=== PATIENT | male | born 1985 | race Caucasian/White ===

== ENCOUNTER 2017-06-23 15:27 | Emergency (ER) | payer BC ==
[~2017-06-23] VITALS: Ht 180.3 cm; Wt 75.0 kg
[2017-06-23 15:33] VITALS: TEMP 36.5; Ht 180.3 cm; Wt 75.0 kg
[2017-06-23 15:46] VITALS: O2SAT 100
[2017-06-23] MEDS ORDERED: LORAZEPAM 1 MG TAB SL STA (15:56)
--- NOTE | 2017-06-23 16:15 | DIAGNOSTIC IMAGING REPORT ---
CHEST ONE VIEW PORTABLE HISTORY: Atypical chest pain COMPARISON: Chest 04/05/2015. FINDINGS: The lungs are clear. Cardiac silhouette is normal in size. No pleural effusions. No pneumothorax. IMPRESSION: No acute process. Electronically signed by: Enoc Edwards M.D. 06/23/2017 4:14 PM Dictated Date/Time: 06/23/2017 4:12 PM
[2017-06-23 16:17] LABS: BASO % 1.1 %; BASO ABS # 0.07 K/uL (0-0.2); EOS ABS # 0.19 K/uL (0-0.5); HEMATOCRIT 48.6 % (42-52); HEMOGLOBIN 17.2 g/dL (14.0-18.0); IG# 0.01 K/uL (0.00-0.02); LYMPH % 28.6 %; LYMPH ABS # 1.82 K/uL (1.2-3.4); MEAN CORPUSCULAR HEMOGLOBIN 32.6 pg (25-34); MEAN CORPUSCULAR HGB CONC 35.4 g/dl (32-36); MONO % 14.4 %; MONO ABS # 0.92 K/uL (0.11-0.59); NEUT % 52.7 %; NEUT ABS # 3.36 K/uL (1.4-6.5); PLATELET COUNT 236 K/uL (130-400); RED CELL DISTRIBUTION WIDTH CV 11.9 % (11.5-14.5); RED CELL DISTRIBUTION WIDTH SD 40.2 fL (36.4-46.3); WHITE BLOOD COUNT 6.37 K/uL (4.8-10.8)
[2017-06-23 16:44] LABS: ALBUMIN 3.9 gm/dl (3.4-5.0); CALCIUM 8.9 mg/dl (8.5-10.1); CREATININE 1.02 mg/dl (0.60-1.40); POTASSIUM 3.7 mmol/L (3.5-5.1)
[2017-06-23 16:49] LABS: CKMB 1.2 ng/ml (0.5-3.6); TOTAL PROTEIN 7.3 gm/dl (6.4-8.2)
[2017-06-23 16:57] VITALS: PULSE 80
[2017-06-23] MEDS ORDERED: LORA0.5T12 PO (17:15)
--- NOTE | 2017-06-23 17:18 | EMERGENCY ROOM VISIT NOTE ---
History First contact with patient: 15:36 Chief Complaint: CHEST PAIN Stated Complaint: CHEST PAIN, SOB Nursing Triage Summary: PT HAS A HX OF pots A CHILD. 2 DAY HX OF SOB AND CHEST HEAVINESS. THE SAME TIME PT HAD LABS DONE AND HE WAS TOLD HE HAD AND ELEVATED RED COUNT POLYCYTHEMIA VERA. AND NEEDED MORE FOLLOW UP. PT DENIES ANY INJURY OR CHANGE IN ACTIVITY. PT STATES HE FEELS THIS MAY BE ANXIETY R/T THE LABS. History of Present Illness The patient is a 31 year old male who presents to the Emergency Room with complaints of chest discomfort and shortness of breath for the past 2 days. The patient reports that he is having a hard time taking a full breath. He has discomfort in the center of his chest and some pain in the center of his back. He states that the symptoms are constant and there are no aggravating or alleviating factors. He describes the pain as a pressure sensation and rates the discomfort at 5/10. The patient does admit to being slightly anxious about recent test results. The patient just started seeing a primary care provider after almost 10 years of not seeing one. He had an echocardiogram yesterday and is unsure of the results. The patient has had recent laboratory testing which showed an elevated white blood cell count. He was told 2 days ago by telephone that he may have polycythemia vera. He states that they ordered more blood work and are sending him to a final [facility] for referral. The patient reports a history of POTS as a child/teenager. He states that all of the symptoms have resolved and he was able to stop taking all of his medications several years ago. He denies palpitations or syncope. He denies abdominal pain , nausea or vomiting. He does report a family history of cardiac disease in his father, who had an ME and a CVA. His mother reports a history of blood clots in her family. The patient is a smoker. Review of Systems A complete 10 point review of systems was reviewed with the patient with pertinent positives and negatives as per history of present illness. All else were negative. Past Medical/Surgical History Medical Problems: (1) No significant active problems (2) POTS (postural orthostatic tachycardia syndrome) Family History Blood clots Myocardial infarction Stroke Social History Smoking Status: Current Every Day Smoker Alcohol Use: occasionally (1 six pack per week) Marital Status: single Housing Status: lives alone Occupation Status: employed Current/Historical Medications Scheduled PRN Lorazepam (Lorazepam), 1-2 TAB PO TID PRN for Anxiety Physical Exam Vital Signs Date Time Temp Pulse Resp B/P (MAP) Pulse Ox O2 Delivery O2 Flow Rate FiO2 06/23/17 17:45 98 Room Air 06/23/17 17:42 135/72 98 06/23/17 16:57 80 15 99 06/23/17 16:27 78 14 97 06/23/17 16:17 82 06/23/17 16:08 140/88 06/23/17 15:57 101 19 97 06/23/17 15:46 100 Room Air 06/23/17 15:46 Room Air 06/23/17 15:33 36.5 86 20 146/91 100 Room Air Physical Exam VITALS: Vitals are noted on the nurse's note and reviewed by myself. Vital signs stable. GENERAL: This is a 31-year-old male, in no acute distress but anxious appearing , well-developed well-nourished. SKIN: The skin was without rashes. EARS: External auditory canals clear, tympanic membranes pearly gill without erythema or effusion bilaterally. EYES: Pupils equal round and reactive to light and accommodation. MOUTH: Mucous membranes moist. Tonsils are not enlarged. Pharynx without erythema or exudate. NECK: Supple without nuchal rigidity. No lymphadenopathy. HEART: Regular rate and rhythm without murmurs gallops or rubs. LUNGS: Clear to auscultation bilaterally without wheezes, rales or rhonchi. No retractions or accessory muscle use. ABDOMEN: Soft, nontender to palpation NEURO: Patient was alert and oriented to person place and time. Medical Decision & Procedures ER Provider Diagnostic Interpretation: CHEST ONE VIEW PORTABLE HISTORY: Atypical chest pain COMPARISON: Chest 04/05/2015. FINDINGS: The lungs are clear. Cardiac silhouette is normal in size. No pleural effusions. No pneumothorax. IMPRESSION: No acute process. Laboratory Results 06/23/17 15:55 Red Blood Count 5.28, Mean Corpuscular Volume 92.0, Mean Corpuscular Hemoglobin 32.6, Mean Corpuscular Hemoglobin Concent 35.4, Mean Platelet Volume 10.0, Neutrophils (%) (Auto) 52.7, Lymphocytes (%) (Auto) 28.6, Monocytes (%) (Auto) 14.4, Eosinophils (%) (Auto) 3.0, Basophils (%) (Auto) 1.1, Neutrophils # (Auto ) 3.36, Lymphocytes # (Auto) 1.82, Monocytes # (Auto) 0.92, Eosinophils # (Auto ) 0.19, Basophils # (Auto) 0.07 06/23/17 15:55 Test 06/23/17 15:55 06/23/17 16:04 White Blood Count 6.37 K/uL (4.8-10.8) Red Blood Count 5.28 M/uL (4.7-6.1) Hemoglobin 17.2 g/dL (14.0-18.0) Hematocrit 48.6 % (42-52) Mean Corpuscular Volume 92.0 fL (80-100) Mean Corpuscular Hemoglobin 32.6 pg (25-34) Mean Corpuscular Hemoglobin Concent 35.4 g/dl (32-36) Platelet Count 236 K/uL (130-400) Mean Platelet Volume 10.0 fL (7.4-10.4) Neutrophils (%) (Auto) 52.7 % Lymphocytes (%) (Auto) 28.6 % Monocytes (%) (Auto) 14.4 % Eosinophils (%) (Auto) 3.0 % Basophils (%) (Auto) 1.1 % Neutrophils # (Auto) 3.36 K/uL (1.4-6.5) Lymphocytes # (Auto) 1.82 K/uL (1.2-3.4) Monocytes # (Auto) 0.92 K/uL (0.11-0.59) Eosinophils # (Auto) 0.19 K/uL (0-0.5) Basophils # (Auto) 0.07 K/uL (0-0.2) RDW Standard Deviation 40.2 fL (36.4-46.3) RDW Coefficient of Variation 11.9 % (11.5-14.5) Immature Granulocyte % (Auto) 0.2 % Immature Granulocyte # (Auto) 0.01 K/uL (0.00-0.02) Anion Gap 8.0 mmol/L (3-11) Est Creatinine Clear Calc Drug Dose 111.3 ml/min Estimated GFR () 113.0 Estimated GFR (Non- 97.5 BUN/Creatinine Ratio 5.8 (10-20) Calcium Level 8.9 mg/dl (8.5-10.1) Total Bilirubin 0.7 mg/dl (0.2-1) Aspartate Amino Transf (AST/SGOT) 30 U/L (15-37) Alanine Aminotransferase (ALT/SGPT) 41 U/L (12-78) Alkaline Phosphatase 80 U/L (45-117) Total Creatine Kinase 141 U/L (39-308) Creatine Kinase MB 1.2 ng/ml (0.5-3.6) Creatine Kinase MB Ratio 0.9 (0-3.0) Total Protein 7.3 gm/dl (6.4-8.2) Albumin 3.9 gm/dl (3.4-5.0) Globulin 3.4 gm/dl (2.5-4.0) Albumin/Globulin Ratio 1.1 (0.9-2) Bedside D-Dimer 125 ng/mlFEU (0-450) Bedside Troponin I < 0.030 ng/ml (0-0.045) Medications Administered Medications (Trade) Dose Ordered Sig/Denise Route Start Time Stop Time Status Last Admin Dose Admin Lorazepam (Ativan Tab) 1 mg NOW STAT SL 06/23/17 15:56 06/23/17 15:59 DC 06/23/17 16:07 1 MG ECG Per My Interpretation Indication: chest pain Rate (beats per minute): 89 Rhythm: normal sinus Findings: no acute ischemic change, no ectopy Change: no significant change ED Course The patient was evaluated as above. Labs were drawn and IV access was obtained. Patient was medicated with 1 mg Ativan sublingually. Patient was reevaluated and findings were discussed. The patient was reassured regarding findings today. Discharge instructions were reviewed with the patient. The patient verbalized understanding of my assessment and treatment plan and was discharged home in good condition. Medical Decision Differential diagnosis includes acute coronary syndrome, pulmonary embolism, pneumothorax, pericarditis, myocarditis, endocarditis, anxiety, musculoskeletal pain, GERD, costochondritis, pneumonia, among others. The patient is a 31-year-old male who presents today complaining of substernal chest discomfort/difficulty taking a deep breath. Patient admits that he has a significant amount of anxiety regarding recent medical tests. He was told that he may have polycythemia vera due to having increased red blood cell counts recently. His hemoglobin and hematocrit today was normal at 17.2 and 48.6. Labs otherwise revealed no leukocytosis or concerning electrolyte abnormalities. Troponin and d-dimer were not elevated. Patient was informed of the findings and reassured. Additionally, I was able to obtain records from [facility]. He had an echocardiogram performed yesterday which showed normal function. Patient will continue to follow-up with his primary care provider for further evaluation and treatment. He has been referred to hematology and will follow up with them as well. I do feel that there was a significant component of anxiety to the symptoms that he presented with today. The patient's case was reviewed with Dr. Ricci, ED attending physician, who agreed with my assessment and treatment plan. Based on the patient's presentation and work up, I feel the patient is stable for outpatient treatment. The patient was educated to return to the emergency department for any worsening of their current condition or new/concerning symptoms. He will follow up with his PCP. Medication Reconcilliation Current Medication List: was personally reviewed by me Blood Pressure Screening Patient's blood pressure: Normal blood pressure Impression Primary Impression: Substernal chest pain Departure Information Dispostion Home / Self-Care Condition GOOD Prescriptions Lorazepam (LORAZEPAM) 0.5 Mg Tab 1-2 TAB PO TID Y for Anxiety, #12 TAB Prov: Ashlie Clifford .LON 06/23/17 Referrals Tani Lord M.D. (PCP) Patient Instructions My [facility] Additional Instructions You have been treated in the Emergency Department for your Chest Pain. Laboratory results and Imaging Studies have ruled out any acute cardiac or pulmonary cause of your chest pain. You were prescribed Lorazepam (Ativan) to be taken 1-2 tabs up to 3 times daily as needed for anxiety. This is a benzodiazepine and will make you drowsy. Do not drive, operate heavy machinery or drink alcohol while taking this medication. For pain control, you can use the following [id number] medicines (if >12 yo): - Regular strength (325mg/tab) Tylenol (acetaminophen) 2 tabs every 4-6 hours as needed. Do not exceed 12 tablets in a 24 hour period. Avoid taking more than 4 grams (4000 mg) of Tylenol per day. This includes any other sources of acetaminophen you may take on a regular basis. - Regular strength (200 mg/tab) Advil (ibuprofen) 1-2 tabs every 4-6 hours as needed. Do not exceed a dose of 3200 mg per day. You should schedule a follow-up appointment with your Primary Care Provider in 2 -3 days for further evaluation from today's Emergency Department visit. Return to the Emergency Department if your current symptoms worsen despite treatment course outlined above, or if you develop any of the following symptoms : worsening chest pain, associated jaw/arm pain, nausea, dizziness, shortness of breath, bloody cough, or fainting.
[2017-06-23 17:42] VITALS: BP 135/72
[2017-06-23 17:45] VITALS: O2SAT 98
== END 2017-06-23 17:43 | disposition home or self-care (01) ==
LOC: C.EDB 15:28 → C.EDA 17:43
DX: R07.2 Precordial pain (principal); R06.02 Shortness of breath; F17.200 Nicotine dependence, unspecified, uncomplicated; Z86.79 Personal history of other diseases of the circulatory system; Z82.49 Family history of ischemic heart disease and other diseases of the circulatory system; Z83.2 Family history of diseases of the blood and blood-forming organs and certain disorders involving the immune mechanism; Z82.3 Family history of stroke